=== PATIENT | male | born 1965 ===

== ENCOUNTER 2016-08-23 06:41 | Day surgery (SDC) | payer OTHER ==
[2016-08-20 10:51] VITALS: BMI 27.8
[2016-08-23] MEDS ORDERED: Lactated Ringer's 1,000 ML IV ONE (07:09)
[2016-08-23] MEDS ORDERED: Succinylcholine 200 mg/10 ml Inj IV ONE (07:18)
[2016-08-23] MEDS ORDERED: Propofol 10 mg/ml Inj (20 ML) ONE (07:19)
[2016-08-23] MEDS ORDERED: Midazolam 2 MG/2 ML VIAL ONE (07:19)
[2016-08-23] MEDS ORDERED: Sevoflurane - Inhalation Anesthetic Liq (250 ml) ONE (07:26)
[2016-08-23] MEDS ORDERED: MethylPREDNISolone Depo 40 mg/ml Inj ONE (07:41)
[2016-08-23] MEDS ORDERED: Bupivacaine 0.5% Inj(30mL) ONE (07:41)
[2016-08-23] MEDS ORDERED: Lidocaine 1% Inj (20ml) ONE (07:41)
[2016-08-23] MEDS ORDERED: Bacitracin Ointment 30 GM TUBE ONE (07:41)
[2016-08-23] MEDS ORDERED: Morphine 1 mg/ml preservative-free Inj(Duramorph) ONE (08:20)
[2016-08-23] MEDS ORDERED: ePHEDrine 50 mg/ml Inj ONE (08:40)
[2016-08-23] MEDS ORDERED: HYDROmorphone 0.5 mg/0.5 ml ISec IVP PRN (09:50)
[2016-08-23] MEDS ORDERED: Dexamethasone 4 mg/1 ml IVP PRN (09:50)
[2016-08-23 10:42] VITALS: RESP 20
[2016-08-23 11:23] VITALS: BP 133/74; PULSE 92; TEMP 98.5
[2016-08-23 11:31] VITALS: O2SAT 98
--- NOTE | 2016-08-23 18:22 | PCM.SURG1 ---
Surgeon's Initial Post Op Note - Surgeon's Notes Surgeon: Sofia Service Delivery Supervisor: RAFA Christian Type of Anesthesia: General Endo Anesthesia Administered By: Dr Harris Aranda Pre-Operative Diagnosis: Internal derangement L knee Operative Findings: peripheral separation L medial meniscus L knee. tear lateral meniscus L knee. tricomartmental synovitis Post-Operative Diagnosis: as above Operation Performed: arthroscopic repair Medial Meniscus peripheral separation. arhtroscopic partisal lateral meniscectomy. arthroscopic tricompartmental synovectomy. intraarticular injection Specimen/Specimens Removed: synovium/cartilage Estimated Blood Loss: EBL {In ML}: 10 Blood Products Given: N/A Drains Used: No Drains Post-Op Condition: Good Date of Surgery/Procedure: 08/23/16 Time of Surgery/Procedure: 08:45 (time in room/anaesthesia indcution time 7:50)
--- NOTE | 2016-09-02 16:33 | PCM.OP ---
Operative Report - Operative Report Date of Surgery/Procedure: 08/23/16 Time of Surgery/Procedure: 08:45 (time in room: anaesthesia induction time- 7:50 ) Surgeon: Sofia Clinical Specialist Vascular: RAFA Christian Anesthesia/Sedation: CASTRO- Dr Harris Love Pre-Operative Diagnosis: internal derangement L knee Post-Operative Diagnosis: peripheral separation medial meniscus. tear lateral meniscus. tricoimpartmnetal synovitis Indication for Surgery: as above. pain and restricted R knee ROM Operative Findings: as above Procedure/Operation Description: arthroscopic medial meniscal repair. arthroscopic partial lateral meniscectomy. arthroscopic partial tricompartmental synovectomy. intraarticular injection. appl knee immobilizer. Operative procedure: After the satisfactory induction of general endotracheal anesthesia after having identified side and site and procedure in a critical pause/timeout, after having obtained informed consent the patient identified as obey rosario in the supine position with all bony prominences well-padded. Left lower extremity is prepped and free draped in the usual fashion for arthroscopic knee surgery. She'll be noted that the patient had failed a course of conservative management consisting of activity modification and anti-inflammatory medication and therapy. The patient cannot understand the discomfort and wishes surgery to be accomplished. The left lower extremity is exsanguinated using a 6 inch Esmarch bandage. The tourniquet which had been applied is inflated to 350 mmHg. The joint is insufflated with 10 mL of 1% lidocaine without epinephrine. At a point approximately 1 thumbbreadth lateral to the inferior pole of the patella using #11 blade an incision was accomplished. Hemostat is introduced into the joint followed by a straight trocar. Patient reduction of the arthroscope. There was found to be a tricompartmental synovitis which was severe. An anterolateral portal was described using an 18-gauge spinal needle followed by a #11 blade followed by introduction of the blunt trocar. A careful partial tricompartmental synovectomy was accomplished using the arthroscopic shaver and the CadenceMD surface wand. This accomplished both to visualization and irritated tissue. With the surgeon exerting a gentle a gentle valgus stress the medial compartment is exposed to advantage. There is found to be a tear of the posterior horn of the medial meniscus. The peripheral separation is in the red white zone and was amenable to repair. Using the arthroscopic shaver the interval is freshened to bleeding tissue. At this point, using the Linvatec meniscal repair system guide is introduced to allow repair. The suture delivery system was introduced through the tear into the capsule the implant was deployed. The instrument was removed from the meniscus and redeployed. This was accomplished for 3 throws of the suture. The suture was clipped and another suture delivery system was introduced into the joint. The suture was deployed in the same fasshion. This having been accomplished the medial meniscus was thus repaired. Attention was turned the lateral compartment. This showed a tear of the inner free edge of the lateral meniscus. Using a combination of the straight biting basket forceps and the side biting basket forceps a partial lateral meniscectomy was accomplished the free edge of the meniscus is removed using the CadenceMD wand. The wound was thoroughly irrigated; closure was in layers with interrupted Vicryl and nylon intra-articular injection of Marcaine as accomplished and Duramorph in [place] compression dressing and knee immobilizer was applied the patient was transferred from the OR table to the stretcher having tolerated the procedure well this is really operative note the patient named Obey Rosario. End dictation Estimated Blood Loss: 5cc Blood Replaced: 0 Sponge/Instrument Count: correct Drains: 0 Complications: none Specimen: synvoium/cartilagte Discharge & Condition: stable
--- NOTE | 2016-09-03 08:24 | OP ---
PROCEDURE DATE: 08/23/2016 PREOPERATIVE DIAGNOSIS: Meniscal derangement of the right knee. POSTOPERATIVE DIAGNOSES: 1. Peripheral separation, medial meniscus. 2. lateral meniscus. 3. Tricompartmental osteoarthritis. PROCEDURE: 1. Medial meniscal repair, right knee. 2. Surgical arthroscopy, partial lateral meniscectomy. 3. Surgical arthroscopy, partial tricompartmental synovectomy. 4. Intraarticular injection. SURGEON: Oni Black MD CLOTHING SUPERVISOR: Sunitha Velez, certified registered nurse. TYPE OF ANESTHESIA: General endotracheal anesthesia. ANESTHESIA ADMINISTERED BY: Dr. Aranda. COMPLICATIONS: No complications. DRAINS: No drains. OPERATIVE INDICATION: Obey Herrera is a patient well-known to my practice. He presents with pain and conservative management of the meniscal problem for over 1-1/2 years. Pros, cons, risks, and benefits of a surgical approach have been discussed, possibility of mechanical failure, infection, thromboembolic disease, and secondary or tertiary surgery has been discussed. OPERATIVE PROCEDURE: After having obtained informed consent in the above fashion and after having identified site, side, and procedure in a critical pause/timeout, after satisfactory induction of the anesthetic, after thoroughly discussing the possibility of mechanical failure, infection, thromboembolic disease, stiffness, possibility of secondary or even tertiary surgery was discussed. The patient did not withstand the discomfort and wished for surgery to be accomplished. Informed consent was accomplished in the presence of the patient and his significant other. After the satisfactory induction of general endotracheal anesthesia, after having identified site, side and procedure in a critical pause/time out, after the satisfactory induction of the anesthetic, the patient was identified as Obey Herrera in the supine position with all bony prominences well padded. The right lower extremity was prepped and free-draped in the usual fashion for lower extremity surgery. The tourniquet had been applied, but was not inflated. Oni Black MD
== END 2016-08-23 13:57 | disposition home or self-care (01) ==
LOC: H.OPSURG 06:41
PROVIDERS: ATTEND Orthopaedic Surgery
DX: S83.262A Peripheral tear of lateral meniscus, current injury, left knee, initial encounter (principal); M65.862 Other synovitis and tenosynovitis, left lower leg